=== PATIENT | female | born 1975 | race Two or more races ===

== ENCOUNTER 2016-12-31 23:15 | Emergency (ER) | payer MEDICAID, OTHER ==
[~2016-12-31] VITALS: Ht 154.9 cm; Wt 65.8 kg
[2017-01-01] MEDS ORDERED: ACETAMINOPHEN/CODEINE 300-30 MG TABLET PO ONE (00:15)
[2017-01-01 00:32] LABS: HEMATOCRIT 35.4 % (37-47); HEMOGLOBIN 11.6 G/DL (12.0-16.0); MEAN CORPUSCULAR HEMOGLOBIN 24.5 UUG (27.0-31.0); MEAN CORPUSCULAR HGB CONC 33 g/dL (32.0-37.0); MEAN CORPUSCULAR VOLUME 74.4 FL (81.0-99.0); NEUTROPHILS % (AUTO) 76.7 % (38.5-71.5); PLATELET COUNT (AUTO) 325 K/UL (150-450); RED BLOOD CELL COUNT(AUTO) 4.76 MIL/UL (4.2-5.4); WHITE BLOOD COUNT (AUTO) 10.6 K/UL (4.0-11.2)
[2017-01-01 00:33] LABS: BASOPHILS % (AUTO) 0.3 % (0.0-2.0); EOSINOPHILS # (AUTO) 0.1 K/uL (0.0-0.7); EOSINOPHILS % (AUTO) 1.3 % (0.0-7.0); LYMPHOCYTES # (AUTO) 1.6 K/UL (0.8-4.8); MONOCYTES # (AUTO) 0.7 K/UL (0.1-1.30); MONOCYTES % (AUTO) 6.7 % (0.0-11.0); NEUTROPHILS # (AUTO) 8.2 K/UL (1.8-8.9)
[2017-01-01] MEDS ORDERED: ACETAMINOPHEN/CODEINE 300-30 MG TABLET ONE (00:34)
[2017-01-01 01:13] LABS: LYMPHOCYTES % (MANUAL) 19 % (20-40); MONOCYTES % (MANUAL) 6 % (2-10); NEUTROPHILS % (MANUAL) 75 % (42-75)
--- NOTE | 2017-01-01 02:21 | NUR ---
Patient discharged to home in stable conditon. Written and verbal after care instructions given. Patient verbalizes understanding of instructions.
== END 2017-01-01 02:22 | disposition home or self-care (01) ==
LOC: ER 23:17
DX: O03.9 Complete or unspecified spontaneous abortion without complication (principal); Z59.0 Homelessness; W01.0XXA Fall on same level from slipping, tripping and stumbling without subsequent striking against object, initial encounter; Y92.89 Other specified places as the place of occurrence of the external cause; Y93.89 Activity, other specified; Y99.8 Other external cause status; Z3A.08 8 weeks gestation of pregnancy
CPT/HCPCS: 36415; 76856; 84702; 84703; 85025; 85730; 86850; 86900; 86901; 99285; A4663

== ENCOUNTER 2017-03-10 11:20 | Emergency (ER) | payer OTHER ==
[~2017-03-10] VITALS: Ht 154.9 cm; Wt 63.5 kg
[2017-03-10] MEDS ORDERED: IV NORMAL SALINE 1000 ML BAG IV ONE (12:00)
[2017-03-10 12:12] LABS: BASOPHILS % (AUTO) 0.2 % (0.0-2.0); EOSINOPHILS # (AUTO) 0.1 K/uL (0.0-0.7); EOSINOPHILS % (AUTO) 0.9 % (0.0-7.0); HEMATOCRIT 30.2 % (31.2-41.9); LYMPHOCYTES # (AUTO) 1.3 K/uL (20.0-40.0); LYMPHOCYTES % (AUTO) 9.6 % (20.5-51.5); MEAN CORPUSCULAR HGB CONC 33 g/dL (32.3-35.6); MEAN CORPUSCULAR VOLUME 72.8 fL (75.5-95.3); NEUTROPHILS # (AUTO) 11.2 K/uL (1.8-8.9); NEUTROPHILS % (AUTO) 82.3 % (38.5-71.5); PLATELET COUNT (AUTO) 560 K/uL (179-408); RED BLOOD CELL COUNT(AUTO) 4.15 MIL/uL (3.63-4.92); WHITE BLOOD COUNT (AUTO) 13.7 K/uL (3.8-11.8)
[2017-03-10 12:18] LABS: CREATININE 0.7 mg/dL (0.6-1.3); POTASSIUM 3.4 mmol/L (3.5-5.1)
[2017-03-10] MEDS ORDERED: IV NORMAL SALINE 250 ML IV ONE (12:23)
[2017-03-10] MEDS ORDERED: IOHEXOL 300MG/ML 100 ML INFUS..BTL ONE (12:23)
[2017-03-10 12:24] LABS: BILIRUBIN,DIRECT 0.4 mg/dL (0.0-0.2); BILIRUBIN,TOTAL 0.7 mg/dL (0.2-1.0); TOTAL PROTEIN, SERUM 7.1 g/dL (6.4-8.2)
[2017-03-10 12:25] LABS: BAND % (MANUAL) 3 % (0-10); EOSINOPHILS % (MANUAL) 1 % (0-8); LYMPHOCYTES % (MANUAL) 12 % (20-40); MONOCYTES % (MANUAL) 8 % (2-10); NEUTROPHILS % (MANUAL) 76 % (42-75)
--- NOTE | 2017-03-10 12:30 | NUR ---
TALKED TO JOHANNA AT [facility] TO TRANSFER THE PT.
[2017-03-10 13:20] LABS: *BILIRUBIN,URIN NEGATIVE (NEGATIVE); *BLOOD, URINE Trace-intact (NEGATIVE); *CLARITY,URINE CLEAR (CLEAR); *COLOR,URINE LIGHT YELLOW (YELLOW); *KETONES,URINE NEGATIVE (NEGATIVE); *PROTEIN,URINE NEGATIVE (NEGATIVE); *UROBILINOGEN,URINE 0.2 E.U./dl (NORMAL); LEUKOCYTE ESTERASE ,URINE NEGATIVE (NEGATIVE); NITRITE, URINE NEGATIVE (NEGATIVE); PH,URINE 7.5 (5.0-8.0); UGLUCOSE NEGATIVE (NEGATIVE)
[2017-03-10 13:22] LABS: *URINE HCG, QUAL NEGATIVE (NEGATIVE)
[2017-03-10 13:30] LABS: BACTERIA,URINE FEW /HPF (NONE SEEN); RBC,URINE 0-3 /HPF (0-3); SQUAMOUS EPITHELIAL CELL,UR FEW /HPF (NONE SEEN)
[2017-03-10] MEDS ORDERED: PIPERACILLIN SODIUM/TAZOBACTAM 3.375 G in IV DEXTROSE 5% 50 ML IV ONE (14:30)
[2017-03-10] MEDS ORDERED: VANCOMYCIN IV 1,000 MG in IV DEXTROSE 5% 250 ML IV ONE (14:30)
--- NOTE | 2017-03-10 15:15 | NUR ---
CALLED [phone] [phone], TO GET UPDATE ON TRANSFER, LEFT A MESSAGE FOR [facility]
[2017-03-10] MEDS ORDERED: VANCOMYCIN IV 200 ML ONE (15:27)
[2017-03-10] MEDS ORDERED: PIPERACILLIN/TAZOBACTAM/D5W 50 ML IV ONE (15:27)
--- NOTE | 2017-03-10 15:32 | NUR ---
REQUESTED INFO FAXED FOR [facility] PER REQUEST. SHOULD CALL DR. SHULTZ AT 1600 TO TALK TO FELISHA SHANKS
--- NOTE | 2017-03-10 15:55 | NUR ---
REFAXED THE REQUESTED INFO AGAIN PER [facility] REQUEST.
--- NOTE | 2017-03-10 16:01 | NUR ---
FELISHA SHANKS TALKING TO DR. SHULTZ AT [facility]
--- NOTE | 2017-03-10 16:01 | NUR ---
PT HAD BM.
--- NOTE | 2017-03-10 16:03 | NUR ---
DR. SHULTZ ACCEPTED THE PT.
--- NOTE | 2017-03-10 16:05 | NUR ---
CALLED [facility] AND TALKED TO JOHANNA AGAIN TO TRANSFER THE PT.
--- NOTE | 2017-03-10 16:40 | NUR ---
[facility] CALLED BACK AND YAJAIRA AT [facility] IS WORKINHG ON PT TRANSFER. PT WILL GO WITH TERRY PER [facility] REQUEST. AUTHORIZATION NUMBER IS [id number]
--- NOTE | 2017-03-10 18:01 | NUR ---
[facility] PROVIDED FOR PT REQUEST. MD BARTLETT
--- NOTE | 2017-03-10 18:32 | NUR ---
REPORT GIVEN TO LUPE AT [facility].
--- NOTE | 2017-03-10 18:34 | NUR ---
PT AMBULATED TO BATH ROOM MULTPLE TIMES WITH STEADY GAIT.
[2017-03-10] MEDS ORDERED: ONDANSETRON 4 MG/2 ML VIAL IV ONE (19:00)
[2017-03-10] MEDS ORDERED: HYDROMORPHONE 1 MG/1 ML DISP.SYRIN IV ONE (19:00)
[2017-03-10] MEDS ORDERED: HYDROMORPHONE 2 MG/1 ML DISP.SYRIN ONE (19:08)
[2017-03-10] MEDS ORDERED: ONDANSETRON 4 MG/2 ML VIAL ONE (19:08)
--- NOTE | 2017-03-10 21:01 | NUR ---
Patient Tranfers to outside Facility Physician: Dr. Mcguire Location: [facility] [place]
== END 2017-03-10 21:02 | disposition short-term general hospital (02) ==
LOC: ER 11:20
DX: T81.4XXA Infection following a procedure, initial encounter (principal); K65.1 Peritoneal abscess; Z59.0 Homelessness; Z98.890 Other specified postprocedural states; Z90.49 Acquired absence of other specified parts of digestive tract
CPT/HCPCS: 36415; 70030-TC; 71045; 83605; 84703; 85025; 85730; 87040; 93005; A4663; J1170; J2405; J2543; J3370; J7030; J7050; Q9967